=== PATIENT | male | born 2000 | race Two or more races ===

== ENCOUNTER 2020-09-12 19:28 | Emergency (ER) | payer OTHER ==
[2020-09-12 19:44] VITALS: BP 114/79; PULSE 63; TEMP 98.9; BMI 22.6
[2020-09-12] MEDS ORDERED: ACETAMINOPHEN 325 MG TABLET (FP) PO ONE (22:16)
[2020-09-12] MEDS ORDERED: ACETAMINOPHEN 325 MG TABLET (FP) ONE (22:18)
== END 2020-09-12 22:25 | disposition home or self-care (01) ==
LOC: FER 19:28
DX: R51.9 Headache, unspecified (principal); V49.50XA Passenger injured in collision with unspecified motor vehicles in traffic accident, initial encounter
CPT/HCPCS: 70450-TC; 99284-25

== ENCOUNTER 2020-09-24 23:31 | Emergency (ER) | payer OTHER ==
[2020-09-24 23:40] VITALS: BP 105/65; PULSE 58; TEMP 98.8; BMI 22.6
== END 2020-09-25 00:14 | disposition home or self-care (01) ==
LOC: FER 23:31
DX: R33.9 Retention of urine, unspecified (principal)
CPT/HCPCS: 99282-25